=== PATIENT | female | born 1950 | race Caucasian/White ===

== ENCOUNTER 2022-03-29 16:28 | Inpatient (IN) | payer MEDICARE ==
[2022-03-29] MEDS ORDERED: traMADol HCl 50 MG TAB PO PRN ×2 (17:51)
[2022-03-29] MEDS ORDERED: hydrALAZINE 20 MG/ML VIAL SLOW IVP PRN (17:51)
[2022-03-29] MEDS ORDERED: Ketorolac Tromethamine 30 MG/ML VIAL ONE (17:56)
[2022-03-29 18:12] LABS: #Monocytes 0.4 thou/uL (0.11-0.59); #Neutrophils 9.9 thou/uL (1.40-6.50); %Basophils 0.3 % (0.0-1.0); %Eosinophils 0.2 % (0.0-10.0); %Lymphocytes 8.6 % (21.0-51.0); %Monocytes 3.7 % (0.0-10.0); %Neutrophils 87.2 % (42.0-75.0); Hemoglobin 14.6 g/dL (12.0-16.0); Mean Corpuscular HGB CONC 31.9 g/dL (32.0-36.0); Mean Corpuscular Hemoglobin 31.5 pg (27.0-31.0); Mean Corpuscular Volume 98.8 fl (78.0-98.0); Mean Platelet Volume 9.1 fL (7.4-10.4); Platelet Count 250 thou/uL (130-400); RBC Distribution Width 11.7 % (11.5-14.5); Red Blood Cell (RBC) Count 4.62 mill/uL (4.20-5.40); White Blood Cell (WBC) Count 11.4 thou/uL (4.8-10.8)
[2022-03-29] MEDS ORDERED: Morphine 4 MG/ML VIAL SLOW IVP PRN (18:22)
[2022-03-29 18:23] LABS: PTT 30.6 sec (22.9-36.1); Prothrombin Time 13.8 sec (12.0-14.7)
[2022-03-29 18:29] LABS: ALT (SGPT) 24 U/L (8-55); AST (SGOT) 24 U/L (5-34); Albumin 4.3 g/dL (3.4-4.8); Alkaline Phosphatase 120 U/L (40-110); Anion Gap 14 mmol/L (10-20); BUN (Urea Nitrogen) 10 mg/dL (9.8-20.1); Bilirubin, Total 0.4 mg/dL (0.2-1.2); Calc. Creatinine Clearance 0 mL/min (70-130); Calcium 9.7 mg/dL (7.8-10.44); Carbon Dioxide 21 mmol/L (23-31); Chloride 108 mmol/L (98-107); Estimated GFR 75; Globulin 3.2 g/dL (2.4-3.5); Glucose 120 mg/dL (80-115); Potassium 4.2 mmol/L (3.5-5.1); Protein, Total 7.5 g/dL (5.8-8.1); Sodium 139 mmol/L (136-145)
[2022-03-29] MEDS ORDERED: TETANUS, DIPHTHERIA TOX,ADULT (TDVAX) 0.5 ML VIAL IM ONE (18:30)
[2022-03-29] MEDS: Sodium Chloride 0.9% 1,000 ML IV SCH (20:39)
[2022-03-29] MEDS: Acetaminophen 500 MG TAB PO SCH ×2 (20:39→23:57)
[2022-03-29] MEDS ORDERED: Famotidine/PF 20 mg/2ml Vial SLOW IVP SCH (21:00)
[2022-03-29 21:21] VITALS: BMI 25.4
[2022-03-29 21:54] LABS: SARS-CoV-2 NAA Rapid Test Not Detected (NotDetected)
[2022-03-30 05:59] LABS: #Eosinphils 0.1 thou/uL (0.0-0.7); #Lymphocytes 1.8 thou/uL (1.20-3.40); #Monocytes 0.5 thou/uL (0.11-0.59); #Neutrophils 4.5 thou/uL (1.40-6.50); %Basophils 0.6 % (0.0-1.0); %Eosinophils 1.3 % (0.0-10.0); %Monocytes 7.1 % (0.0-10.0); Mean Corpuscular HGB CONC 32.9 g/dL (32.0-36.0); Mean Corpuscular Hemoglobin 32.5 pg (27.0-31.0); Mean Corpuscular Volume 98.7 fl (78.0-98.0); Mean Platelet Volume 9.2 fL (7.4-10.4); Platelet Count 213 thou/uL (130-400); RBC Distribution Width 11.6 % (11.5-14.5); Red Blood Cell (RBC) Count 4.01 mill/uL (4.20-5.40); White Blood Cell (WBC) Count 6.9 thou/uL (4.8-10.8)
[2022-03-30] MEDS: Acetaminophen 500 MG TAB PO SCH ×4 (05:59→23:34)
[2022-03-30 06:05] LABS: Anion Gap 10 mmol/L (10-20); BUN (Urea Nitrogen) 8 mg/dL (9.8-20.1); Calc. Creatinine Clearance 80 mL/min (70-130); Calcium 8.3 mg/dL (7.8-10.44); Carbon Dioxide 20 mmol/L (23-31); Chloride 113 mmol/L (98-107); Estimated GFR 82; Glucose 106 mg/dL (80-115); Phosphorus 3.2 mg/dL (2.3-4.7); Potassium 3.7 mmol/L (3.5-5.1); Sodium 139 mmol/L (136-145)
[2022-03-30 06:09] LABS: INR-International Normal Ratio 1.1; Prothrombin Time 14.1 sec (12.0-14.7)
[2022-03-30] MEDS ORDERED: CEFAZOLIN 2 GM in Sodium Chloride 0.9% 100 ML IVPB SCH (07:45)
[2022-03-30] MEDS ORDERED: Morphine 4 MG/ML VIAL SLOW IVP PRN (07:48)
[2022-03-30] MEDS ORDERED: PHOS-NAK 1 PKT PACK PO SCH (08:00)
[2022-03-30] MEDS: Polyethylene Glycol 3350 17 GM Packet PO SCH (08:12)
[2022-03-30] MEDS: Famotidine 20 MG TAB PO SCH ×2 (08:12→21:19)
[2022-03-30] MEDS: Senokot S 8.6-50 MG TAB PO SCH ×2 (08:12→21:19)
[2022-03-30] MEDS ORDERED: fentaNYL Citrate/PF 100 MCG/2 ML SYRINGE ONE (11:12)
[2022-03-30] MEDS ORDERED: CEFAZOLIN 2 GM VIAL ONE (11:41)
[2022-03-30] MEDS ORDERED: Sodium Chloride 0.9% 100 ML ONE (12:10)
[2022-03-30] MEDS ORDERED: Rocuronium Bromide 10 MG/ML (10ML VIAL) ONE (13:12)
[2022-03-30] MEDS ORDERED: PROPOFOL 200 MG/20 ML VIAL ONE (13:12)
[2022-03-30] MEDS ORDERED: Dexamethasone 20 MG/5 ML VIAL ONE (13:12)
[2022-03-30] MEDS ORDERED: Ondansetron PF 4 MG/2 ML Vial ONE (13:12)
[2022-03-30] MEDS ORDERED: SUGAMMADEX SODIUM 200 MG/2 ML VIAL ONE (14:11)
[2022-03-30] MEDS ORDERED: FENTANYL 50 MCG/ML VIAL 50 MCG/ML VIAL ONE (14:32)
[2022-03-30] MEDS: CEFAZOLIN 2 GM in Sodium Chloride 0.9% 100 ML IVPB SCH (21:19)
[2022-03-30] MEDS: Ibuprofen 200 MG TAB PO PRN (23:34)
[2022-03-31] MEDS: CEFAZOLIN 2 GM in Sodium Chloride 0.9% 100 ML IVPB SCH ×2 (05:45→12:45)
[2022-03-31] MEDS: Acetaminophen 500 MG TAB PO SCH ×2 (05:46→11:11)
[2022-03-31 06:18] LABS: #Eosinphils 0.1 thou/uL (0.0-0.7); #Lymphocytes 1.3 thou/uL (1.20-3.40); #Monocytes 0.8 thou/uL (0.11-0.59); #Neutrophils 6.7 thou/uL (1.40-6.50); %Basophils 0.1 % (0.0-1.0); %Eosinophils 1.4 % (0.0-10.0); %Lymphocytes 14.9 % (21.0-51.0); %Neutrophils 74.7 % (42.0-75.0); Hemoglobin 12.1 g/dL (12.0-16.0); Mean Corpuscular HGB CONC 32.3 g/dL (32.0-36.0); Mean Corpuscular Hemoglobin 32.1 pg (27.0-31.0); Mean Corpuscular Volume 99.4 fl (78.0-98.0); Mean Platelet Volume 9.5 fL (7.4-10.4); Platelet Count 189 thou/uL (130-400); RBC Distribution Width 11.7 % (11.5-14.5); Red Blood Cell (RBC) Count 3.77 mill/uL (4.20-5.40)
[2022-03-31 06:42] LABS: Anion Gap 11 mmol/L (10-20); BUN (Urea Nitrogen) 9 mg/dL (9.8-20.1); Calc. Creatinine Clearance 82 mL/min (70-130); Calcium 8.6 mg/dL (7.8-10.44); Carbon Dioxide 19 mmol/L (23-31); Chloride 112 mmol/L (98-107); Estimated GFR 84; Glucose 104 mg/dL (80-115); Magnesium 1.9 mg/dL (1.6-2.6); Phosphorus 3.6 mg/dL (2.3-4.7); Potassium 4.2 mmol/L (3.5-5.1); Sodium 138 mmol/L (136-145)
[2022-03-31] MEDS: Polyethylene Glycol 3350 17 GM Packet PO SCH (08:45)
[2022-03-31] MEDS: Senokot S 8.6-50 MG TAB PO SCH (08:45)
[2022-03-31] MEDS: Ibuprofen 200 MG TAB PO PRN (08:45)
[2022-03-31] MEDS ORDERED: Aspirin 81 mg Enteric Coated Tablet PO SCH (09:00)
[2022-03-31 15:31] VITALS: BP 115/73; TEMP 97.8
== END 2022-03-31 16:55 | disposition home or self-care (01) | DRG 482 ==
LOC: ERS 16:28 → SURG A 17:55
PROVIDERS: ADMIT Surgery; ATTEND Surgery
PROC: 0QH736Z Insertion of Intramedullary Internal Fixation Device into Left Upper Femur, Percutaneous Approach (ICD-10-PCS; principal; 2022-03-30)
DX: S72.002A Fracture of unspecified part of neck of left femur, initial encounter for closed fracture (principal); Z20.822 Contact with and (suspected) exposure to COVID-19; W18.30XA Fall on same level, unspecified, initial encounter
CPT/HCPCS: 36415; 71045; 72192; 80048; 80053; 83735; 84100; 85025; 85610; 85730; 86850; 86900; 86901; 93005; 96374; C1713; G0390; J1100; J1885; J2405; J2704; J3010; J3490; J7050; S0028; U0002